=== PATIENT | male | born 1965 | race Caucasian/White ===

== ENCOUNTER 2019-02-27 19:12 | Emergency (ER) | payer BC, OTHER ==
--- NOTE | 2019-02-27 20:15 | EDM.PDOC ---
ED HPI GENERAL MEDICAL PROBLEM - General Chief Complaint: ENT Problem Stated Complaint: RIGHT SIDE FACE PAIN ABCESS Time Seen by Provider: 02/27/19 19:23 Source of Information: Reports: Patient History Limitations: Reports: No Limitations - History of Present Illness INITIAL COMMENTS - FREE TEXT/NARRATIVE: TRIAGE NOTE -- Pt states he has a mass to his face that he is worried is infected. Pt is supposed to have an oral sx on 03/30 to remove mass, bone graft the region and get root canals to both front teeth. Pt states he started having chills, weakness, and feels that it is difficult to swollow today. [ End ] As above. There was a mass in the left upper maxillary area discovered on CT scan about 3 months ago. Patient had another CT scan a month and a half ago and says there was some progression of bony destruction in the area. He says there is been no intervention because the surgeons involved on [facility] which she has been unable to provide and apparently are not excepting his insurance. That is what he says anyway which was by way of explaining why there had been such a delay in definitive evaluation and treatment. Patient says there has been no tissue diagnosis as far as he knows. He came in tonight because he has been having chills and discomfort in the area. He is not sure if he has had any actual fever however. Risk factors include diabetes and high blood pressure. He is not taking any medication at this point or any other measure to moderate symptoms related to the mass. Right Neck Pain Score (Numeric/FACES): 8 - Related Data Allergies Allergy/AdvReac Type Severity Reaction Status Date / Time acetaminophen Allergy Cannot Verified 02/27/19 19:26 [From Darvocet-N] Remember codeine Allergy Cannot Verified 02/27/19 19:26 Remember meperidine [From Demerol] Allergy Cannot Verified 02/27/19 19:26 Remember morphine Allergy Cannot Verified 02/27/19 19:26 Remember oxaprozin [From Daypro] Allergy Cannot Verified 02/27/19 19:26 Remember propoxyphene Allergy Cannot Verified 02/27/19 19:26 [From Darvocet-N] Remember Home Meds: Home Meds Amoxicillin/Potassium Clav [Augmentin 875-125 Tablet] 1 each PO Q12H #20 tablet 02/27/19 [Rx] Insulin Degludec [Tresiba] 60 units SQ DAILY 02/27/19 [History] Insulin Lispro [Humalog] 1 unit SQ TIDMEALS 02/27/19 [History] amLODIPine Besylate [Amlodipine Besylate] 10 mg PO DAILY 02/27/19 [History] hydroCHLOROthiazide [Hydrochlorothiazide] 25 mg PO DAILY 02/27/19 [History] Past Medical History Cardiovascular History: Reports: Hypertension Endocrine/Metabolic History: Reports: Diabetes, Type II - Infectious Disease History Infectious Disease History: Reports: Chicken Pox - Past Surgical History HEENT Surgical History: Reports: Oral Surgery Social & Family History - Family History Family Medical History: Noncontributory - Tobacco Use Smoking Status *Q: Never Smoker Second Hand Smoke Exposure: No - Caffeine Use Caffeine Use: Reports: Soda - Recreational Drug Use Recreational Drug Use: No ED ROS ENT - Review of Systems Review Of Systems: Comprehensive ROS is negative, except as noted in HPI. ED EXAM, ENT - Physical Exam Exam: See Below Exam Limited By: No Limitations General Appearance: Alert, WD/WN, No Apparent Distress Eye Exam: Bilateral Eye: EOMI, PERRL Ears: Normal External Exam Nose: Normal Inspection Mouth/Throat: Other (Posterior pharynx is a bit hyperemic but there is no observable mass-effect. No exudate or asymmetry. There might be the slightest fullness in the left maxillary area but no evidence of a soft tissue infection. Oral cavity also reveals several missing teeth and perhaps slight edema of the gum tissue but no evidence of abscess which is observable on exam.) Head: Atraumatic, Normocephalic Neck: Normal Inspection, Supple, Non-Tender Respiratory/Chest: No Respiratory Distress, Lungs Clear, Normal Breath Sounds Cardiovascular: Regular Rate, Rhythm GI/Abdominal: Soft, Non-Tender Back: Normal Inspection Extremities: Other (Mild pitting pretibial edema left lower extremity. Right lower extremity status post below the knee amputation unremarkable stump.) Neurological: Alert, Oriented Psychiatric: Normal Affect, Normal Mood Skin: Warm, Dry Course - Vital Signs Last Recorded V/S: Last Vital Signs Temp 36.7 C 02/27/19 19:21 Pulse 86 02/27/19 19:21 Resp 18 02/27/19 19:21 BP 153/92 H 02/27/19 19:21 Pulse Ox 97 02/27/19 19:21 - Orders/Labs/Meds Orders: Active Orders 24 hr Category Date Time Status Soft Tissue Neck w Cont [CT] Stat Exams 02/27/19 21:27 Taken CULTURE BLOOD [BC] Stat Lab 02/27/19 20:16 Received CULTURE BLOOD [BC] Stat Lab 02/27/19 20:26 Received cefTRIAXone [Rocephin] 1 gm Med 02/27/19 22:45 Active Sodium Chloride 0.9% [Normal Saline] 100 ml IV ONETIME Blood Culture x2 Reflex Set [OM.PC] Stat Oth 02/27/19 19:45 Ordered Medication Orders Ceftriaxone Sodium 1 gm/ (Sodium Chloride) 100 mls @ 200 mls/hr IV ONETIME ONE Stop: 02/27/19 23:14 Labs: Laboratory Tests 02/27/19 02/27/19 Range/Units 20:26 20:26 WBC 12.52 H (4.23-9.07) K/mm3 RBC 3.99 L (4.63-6.08) M/mm3 Hgb 11.8 L (13.7-17.5) gm/dl Hct 35.8 L (40.1-51.0) % MCV 89.7 (79.0-92.2) fl MCH 29.6 (25.7-32.2) pg MCHC 33.0 (32.2-35.5) g/dl RDW Std Deviation 42.8 (35.1-43.9) fL Plt Count 360 H (163-337) K/mm3 MPV 9.5 (9.4-12.3) fl Neut % (Auto) 66.0 (34.0-67.9) % Lymph % (Auto) 22.0 (21.8-53.1) % Collin % (Auto) 8.5 (5.3-12.2) % Eos % (Auto) 3.2 (0.8-7.0) Baso % (Auto) 0.2 (0.1-1.2) % Neut # (Auto) 8.26 H (1.78-5.38) K/mm3 Lymph # (Auto) 2.75 (1.32-3.57) K/mm3 Collin # (Auto) 1.07 H (0.30-0.82) K/mm3 Eos # (Auto) 0.40 (0.04-0.54) K/mm3 Baso # (Auto) 0.03 (0.01-0.08) K/mm3 Manual Slide Review Abnormal smear Sodium 140 (136-145) mEq/L Potassium 3.7 (3.5-5.1) mEq/L Chloride 104 (98-107) mEq/L Carbon Dioxide 26 (21-32) mEq/L Anion Gap 13.7 (5-15) BUN 38 H (7-18) mg/dL Creatinine 1.7 H (0.7-1.3) mg/dL Est Cr Clr Drug Dosing 40.44 mL/min Estimated GFR (MDRD) 42 (>60) mL/min BUN/Creatinine Ratio 22.4 H (14-18) Glucose 140 H (74-106) mg/dL Calcium 8.5 (8.5-10.1) mg/dL Total Bilirubin 0.2 (0.2-1.0) mg/dL AST 41 H (15-37) U/L ALT 59 (16-63) U/L Alkaline Phosphatase 77 (46-116) U/L Total Protein 6.9 (6.4-8.2) g/dl Albumin 2.9 L (3.4-5.0) g/dl Globulin 4.0 gm/dL Albumin/Globulin Ratio 0.7 L (1-2) Meds: Medications Generic Name Dose Route Start Last Admin Trade Name Freq PRN Reason Stop Dose Admin Ceftriaxone Sodium 1 gm/ 100 mls @ 200 mls/hr 02/27/19 22:45 Sodium Chloride IV 02/27/19 23:14 ONETIME ONE - Re-Assessments/Exams Free Text/Narrative Re-Assessment/Exam: 02/27/19 22:53 There are few salient lab abnormals. However the CT scan does show evidence of tonsillitis without abscess as well as mass lesion anterior maxilla which could possibly be benign or malignant. Patient has a CT report from a month and a half ago suggestive of apical abscesses. We will go ahead and cover him with an antibiotic. Rocephin in the ER followed by Augmentin. He needs to move ahead briskly to get this sorted out. If he cannot find what he needs in the community it is suggested that he apply to dental schools and be taken and is a clinic patient. Any fever lack of ability to get this taken care of worsening of symptoms return to the ER right away. Departure - Departure Time of Disposition: 22:54 Disposition: Home, Self-Care 01 Clinical Impression: Tonsillitis, Apical abscess - Discharge Information Prescriptions: Amoxicillin/Potassium Clav [Augmentin 875-125 Tablet] 1 each PO Q12H #20 tablet Referrals: PCP,None [Primary Care Provider] - Forms: ED Department Discharge Additional Instructions: In response to your symptoms we did place blood work as well as a CT scan of the neck and facial area. There is little in the way of lab abnormals. However the CT scan does show evidence of tonsillitis which we suspected as well as the mass in the maxillary or cheek area on the left. Based on the previous CT scan this probably represents abscesses related to the teeth involved. However malignancy needs to be ruled out. It is recommended that in light of apparent insurance issue that you find a dental school which would be willing to take you on as a clinic patient. You have been treated with Rocephin in the emergency department which is a broad-spectrum antibiotic which should moderate your pain and take care of the tonsillitis. It also should help contain what is going on in the cheek area. This will be followed by Augmentin which is a similar antibiotic and oral. Or any worsening condition fever difficulty swallowing any concern at all return to ER. It is urgent that you get this problem sorted out in an appropriate setting [facility]. Sepsis Event Note - Evaluation Sepsis Screening Result: No Definite Risk - Focused Exam Vital Signs: Vital Signs Temp Pulse Resp BP Pulse Ox 02/27/19 19:21 36.7 C 86 18 153/92 H 97 Date Exam was Performed: 02/27/19 Time Exam was Performed: 22:52 - My Orders Last 24 Hours: My Active Orders 02/27/19 19:45 Blood Culture x2 Reflex Set [OM.PC] Stat 02/27/19 20:16 CULTURE BLOOD [BC] Stat 02/27/19 20:26 CULTURE BLOOD [BC] Stat 02/27/19 21:27 Soft Tissue Neck w Cont [CT] Stat 02/27/19 22:45 cefTRIAXone [Rocephin] 1 gm Sodium Chloride 0.9% [Normal Saline] 100 ml IV ONETIME - Assessment/Plan Last 24 Hours: My Active Orders 02/27/19 19:45 Blood Culture x2 Reflex Set [OM.PC] Stat 02/27/19 20:16 CULTURE BLOOD [BC] Stat 02/27/19 20:26 CULTURE BLOOD [BC] Stat 02/27/19 21:27 Soft Tissue Neck w Cont [CT] Stat 02/27/19 22:45 cefTRIAXone [Rocephin] 1 gm Sodium Chloride 0.9% [Normal Saline] 100 ml IV ONETIME
[2019-02-27] MEDS ORDERED: cefTRIAXone 1 GM in Sodium Chloride 0.9% 100 ML IV ONE (22:45)
[2019-02-27] MEDS ORDERED: cefTRIAXone 1 GM, Lidocaine 1% 2.1 ML IM SCH ×2 (22:45)
--- NOTE | 2019-02-28 10:38 | CT ---
Soft tissue neck Technique: Multiple axial sections were obtained from above the external auditory canals inferiorly to the lung apices. Intravenous contrast was utilized. Comparison: No prior neck imaging is available. Findings: Parotid salivary glands and submandibular salivary glands are within normal limits. Mastoid sinuses and paranasal sinuses show nothing acute. Minimal mucosal thickening seen within both inferior maxillary sinuses. Bony lesion is seen within the anterior maxilla to the midline and to the left of midline. This shows some internal calcifications and rim calcifications. This causes a defect within the adjacent maxilla. This finding measures approximately 1.7 cm x 1.7 cm. No additional bony abnormality is seen within the maxilla or mandible. Degenerative change is seen within the spine primarily at C5-C6 and C6-C7 with disc space narrowing and anterior osteophytes. Posterior osteophytes are also noted primarily at C6-C7. Prevertebral soft tissues are normal. Epiglottis is normal. Thyroid gland is not enlarged. Parapharyngeal soft tissues are symmetric in appearance. No adenopathy or other neck mass is seen. Impression: 1. Bony lesion within the anterior maxilla as described above. Please correlate if this is clinically stable over a period of years to represent benign lesion. If this lesion is a new finding, biopsy could then be considered. 2. Degenerative change within the cervical spine as noted above. 3. No additional abnormality is appreciated. Diagnostic code #9 This report was dictated in [place] Standard Time I agree with preliminary report issued by [facility] (ad report finalized on 02/27/19, 11:29 PM Central Time)
== END 2019-02-27 23:25 | disposition home or self-care (01) ==
LOC: JD.ED 19:12
DX: K04.7 Periapical abscess without sinus (principal); J03.90 Acute tonsillitis, unspecified; I10 Essential (primary) hypertension; E11.9 Type 2 diabetes mellitus without complications; Z79.4 Long term (current) use of insulin; Z88.5 Allergy status to narcotic agent; Z88.8 Allergy status to other drugs, medicaments and biological substances; Z79.899 Other long term (current) drug therapy
CPT/HCPCS: 36415; 70491; 80053; 85025; 87040; 96365; 99284; J0696; J7050; 99283

== ENCOUNTER 2019-10-11 23:01 | Emergency (ER) | payer OTHER ==
--- NOTE | 2019-10-11 23:28 | EDM.PDOC ---
ED HPI GENERAL MEDICAL PROBLEM - General Chief Complaint: Upper Extremity Injury/Pain Stated Complaint: L ARM SKIN COMPLAINT Time Seen by Provider: 10/11/19 23:11 Source of Information: Reports: Patient History Limitations: Reports: No Limitations - History of Present Illness INITIAL COMMENTS - FREE TEXT/NARRATIVE: Mr. Juan is a very pleasant 53-year-old gentleman who now presents the ED with left upper extremity pain and swelling. He states that he woke with left elbow region pain about 2 or 3 weeks ago. He states that he had no troubles when he went to bed, and he cannot imagine how he might have injured it while in bed. After a couple of days, he saw a chiropractor, who, he states, did not want to touch him, but he suggested that he might have a blood clot in his arm. The patient did not seek medical attention, instead, he applied an ice pack to the area, and he states that after a couple of days, his symptoms resolved completely. The patient now presents the ED stating that the pain in his left elbow region returned about 2 or 3 days ago, along with some swelling and ecchymosis to the distal upper arm and swelling without ecchymosis to the proximal left forearm. Again, the patient denies having any trauma. The patient is not on an anticoagulant. Here in the ED, the patient's initial BP is found to be elevated at 178/101 with a slight tachycardia of 101 bpm. He is afebrile, saturating 98% on room air. Other than the left upper extremity issue, the patient denies having a recent fever, chills, sore throat, ear pain, nasal or sinus congestion, cough, dyspnea, chest pain, palpitations, nausea, vomiting, constipation, diarrhea, abdominal pain, urinary symptoms, recent weight gain or weight loss, recent bloody bowel movements or black bowel movements, recent joint aches, headaches, or rashes. The patient's PCP is Dr. Jean Carlos Pereyra. Left Elbow Pain Score (Numeric/FACES): 10 - Related Data Allergies Allergy/AdvReac Type Severity Reaction Status Date / Time acetaminophen Allergy Cannot Verified 10/11/19 23:14 [From Darvocet-N] Remember codeine Allergy Cannot Verified 10/11/19 23:14 Remember meperidine [From Demerol] Allergy Cannot Verified 10/11/19 23:14 Remember morphine Allergy Cannot Verified 10/11/19 23:14 Remember oxaprozin [From Daypro] Allergy Cannot Verified 10/11/19 23:14 Remember propoxyphene Allergy Cannot Verified 10/11/19 23:14 [From Darvocet-N] Remember Home Meds: Home Meds Insulin Degludec [Tresiba] 60 units SQ DAILY 02/27/19 [History] Insulin Lispro [Humalog] 1 unit SQ TIDMEALS 02/27/19 [History] amLODIPine Besylate [Amlodipine Besylate] 10 mg PO DAILY 02/27/19 [History] hydroCHLOROthiazide [Hydrochlorothiazide] 25 mg PO DAILY 02/27/19 [History] Past Medical History Cardiovascular History: Reports: Hypertension Endocrine/Metabolic History: Reports: Diabetes, Type II - Infectious Disease History Infectious Disease History: Reports: Chicken Pox - Past Surgical History HEENT Surgical History: Reports: Oral Surgery ([place] teeth extraction. Benign oral mass excised.) Musculoskeletal Surgical History: Reports: Amputation (right BKA), Arthroscopic Knee (bilateral), Shoulder Surgery (bilateral, arthroscopic) Social & Family History - Family History Family Medical History: Noncontributory - Tobacco Use Smoking Status *Q: Never Smoker - Caffeine Use Caffeine Use: Reports: Soda - Alcohol Use Alcohol Use History: Yes Alcohol Use Frequency: Rarely - Recreational Drug Use Recreational Drug Use: Yes Drug Use in Last 12 Months: No Recreational Drug Type: Reports: Marijuana/Hashish (last smoked when 16 yrs old) - Living Situation & Occupation Living situation: Reports: () 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 ED EXAM, GENERAL - Physical Exam Exam: See Below Exam Limited By: No Limitations General Appearance: Alert, WD/WN, No Apparent Distress Extremities: Other (There is an approximately 8 cm diameter area of swelling and ecchymosis to the volar distal upper left arm. Mild associated tenderness. Questionable swelling to the proximal left forearm, although the patient feels like it is swollen. No restriction in the elbow ROM. Bounding and equal bilateral radial pulses; neurovascular status of the left upper extremity is intact.) Course - Vital Signs Last Recorded V/S: Last Vital Signs Temp 36.2 C 10/11/19 23:10 Pulse 101 H 10/11/19 23:10 Resp 16 10/11/19 23:10 BP 178/101 H 10/11/19 23:10 Pulse Ox 98 10/11/19 23:10 - Orders/Labs/Meds Orders: Active Orders 24 hr Category Date Time Status VL Duplex Upr Ext Veins Ltd Lt [US] Stat Exams 10/12/19 00:01 Taken - Re-Assessments/Exams Free Text/Narrative Re-Assessment/Exam: 10/11/19 23:25 As above, the patient woke with significant pain to his left elbow region 2 or 3 weeks ago, which resolved after he he iced it for a few days. A chiropractor that he saw at that time told him that it might be a blood clot, but the patient did not seek medical attention. The pain returned 2 or 3 days ago, along with some swelling to the distal upper arm and proximal forearm, and ecchymosis to the distal upper arm. No history of trauma. I have ordered a Doppler ultrasound of the arm to evaluate for a DVT. 10/12/19 01:09 Venous Doppler of the left upper extremity as read by Liborio as "No evidence of deep vein thrombosis." 10/12/19 01:12 Doppler results discussed with the patient. The patient appears to have a hematoma to his left upper extremity, although the cause is unknown. Perhaps the patient sleepwalks and injured his arm somehow. Going forward, I recommended that he apply heating pad, which will help to liquefy the hematoma. He declined an offer for referral to an Orthopedic Surgeon. Departure - Departure Time of Disposition: 01:13 Disposition: Home, Self-Care 01 Condition: Good Clinical Impression: Hematoma of arm - Discharge Information *PRESCRIPTION DRUG MONITORING PROGRAM REVIEWED*: Not Applicable *COPY OF PRESCRIPTION DRUG MONITORING REPORT IN PATIENT PATRICA: Not Applicable Referrals: Jean Carlos Pereyra Jr, MD [Primary Care Provider] - Forms: ED Department Discharge Additional Instructions: You were seen in the emergency room after developing a painful discolored swelling to your left upper arm. Work-up in the ER included a Doppler ultrasound of your left upper extremity, which returned negative for a DVT. Based on your history, physical exam, and Doppler ultrasound results, you appear to have a hematoma to your left upper arm, but the cause of the hematoma is not known. Going forward, as discussed, we recommend that you apply a heating pad to help your body to liquefy the blood clot and get rid of it. If any other problems, please do not hesitate to return to the ER. Sepsis Event Note (ED) - Evaluation Sepsis Screening Result: No Definite Risk - Focused Exam Vital Signs: Vital Signs Temp Pulse Resp BP Pulse Ox 10/11/19 23:10 36.2 C 101 H 16 178/101 H 98 - My Orders Last 24 Hours: My Active Orders 10/12/19 00:01 VL Duplex Upr Ext Veins Ltd Lt [US] Stat - Assessment/Plan Last 24 Hours: My Active Orders 10/12/19 00:01 VL Duplex Upr Ext Veins Ltd Lt [US] Stat
--- NOTE | 2019-10-12 09:00 | US ---
Left upper extremity venous ultrasound: Duplex and color Doppler evaluation was obtained of the left internal jugular, subclavian, axillary, basilic, cephalic, brachial radial and ulnar veins. Right internal jugular vein was also evaluated. Comparison: No prior upper extremity venous imaging. Findings: Normal phasic flow, augmentation and compression is seen. Slight soft tissue swelling noted within the lower upper extremity. Impression: 1. Slight soft tissue swelling. 2. No evidence of venous thrombosis within the left upper extremity or within the right internal jugular vein. Diagnostic code #2 This report was dictated in MDT I agree with preliminary report from [facility], finalized on 10/12/19, 2:06 AM Central Daylight Time
== END 2019-10-12 01:25 | disposition home or self-care (01) ==
LOC: JD.ED 23:01
DX: M79.81 Nontraumatic hematoma of soft tissue (principal); E11.9 Type 2 diabetes mellitus without complications; I10 Essential (primary) hypertension; Z79.899 Other long term (current) drug therapy; Z88.6 Allergy status to analgesic agent; Z88.5 Allergy status to narcotic agent; Z79.4 Long term (current) use of insulin
CPT/HCPCS: 93971-26-LT; 93971-LT; 99282; 99283-25

== ENCOUNTER 2023-11-15 14:33 | Emergency (ER) | payer MEDICARE ==
[2023-11-15] MEDS: Aspirin 81 MG Tab.Chew PO ONE (15:27)
[2023-11-15 15:33] LABS: BASOPHILS ABSOLUTE AUTO 0.1 K/mm3 (0.0-0.2); BASOPHILS PERCENT AUTO 0.5 % (0.0-1.0); EOSINOPHILS ABSOLUTE AUTO 0.3 K/mm3 (0.0-0.4); EOSINOPHILS PERCENT AUTO 2.7 % (0.0-6.0); HEMATOCRIT 33.5 % (42.0-52.0); HEMOGLOBIN 10.8 gm/dl (14.0-18.0); IMMATURE GRAN ABSOLUTE AUTO 0.07 K/mm3 (0.00-0.05); IMMATURE GRAN PERCENT AUTO 0.6 % (0.0-0.4); LYMPHOCYTES ABSOLUTE AUTO 2.1 K/mm3 (1.0-4.8); LYMPHOCYTES PERCENT AUTO 18.1 % (24.0-44.0); MEAN CORPUSCULAR HEMOGLOBIN 31.3 pg (28.0-32.0); MEAN CORPUSCULAR HGB CONC 32.2 g/dl (32.0-36.0); MEAN CORPUSCULAR VOLUME 97.1 fl (83.0-99.0); MONOCYTES ABSOLUTE AUTO 1.1 K/mm3 (0.0-0.8); MONOCYTES PERCENT AUTO 8.9 % (0.0-8.0); NEUTROPHILS ABSOLUTE AUTO 8.2 K/mm3 (1.8-7.7); NEUTROPHILS PERCENT AUTO 69.2 % (41.0-71.0); PLATELET COUNT,PLT 340 K/mm3 (150-400); RED BLOOD CELL COUNT 3.45 M/mm3 (4.52-5.90); WHITE BLOOD CELL COUNT,WBC 11.85 K/mm3 (3.9-11.3)
[2023-11-15 16:03] LABS: A/G RATIO 0.7 (1-2); ALBUMIN 3.2 g/dl (3.4-5.0); ANION GAP 13.6 (5-15); BILIRUBIN TOTAL 0.3 mg/dL (0.2-1.0); BUN/CREATININE RATIO 6.9 (14-18); CALCIUM 8.7 mg/dL (8.5-10.1); CREATININE 5.1 mg/dL (0.7-1.3); EST CRCL DRUG DOSING (CG) 14.76 mL/min; MAGNESIUM 1.9 mg/dL (1.8-2.4); POTASSIUM,K 3.6 mEq/L (3.5-5.1); PROTEIN TOTAL,TP 7.8 g/dl (6.4-8.2)
[2023-11-15] MEDS: hydrALAZINE 20 MG/ML SDV IVPUSH ONE (19:08)
== END 2023-11-15 19:20 | disposition home or self-care (01) ==
LOC: JD.ED 14:33
DX: I16.0 Hypertensive urgency (principal); I10 Essential (primary) hypertension; E11.9 Type 2 diabetes mellitus without complications; Z88.6 Allergy status to analgesic agent; Z88.5 Allergy status to narcotic agent; Z88.8 Allergy status to other drugs, medicaments and biological substances; Z79.4 Long term (current) use of insulin; Z79.899 Other long term (current) drug therapy
CPT/HCPCS: 36415; 71045; 80053; 83690; 83735; 84484; 85025; 93005; 96374; 99285; A9270; J0360; 93010; 99284